=== PATIENT | male | born 1945 | race Asian ===

== ENCOUNTER 2020-07-01 10:41 | Inpatient (IN) | payer SELFPAY ==
--- NOTE | 2020-07-01 17:19 | PDOC.HHP ---
Hospitalist HPI - History of Present Illness referred from urgent are due to abnormal blood work History of Present Illness: PCP: City call The patient is 75-year-old male was admitted to [facility] by Dr. Nicholson on June 27, 2020. He was admitted for generalized weakness. He is visiting from [place] currently and is unable to get a flight back until August 24, 2020. Patient is Mandarin speaking only and has been living with his daughter and son-in-law. He did not have any medical conditions in his past other than depression. He went to the local urgent care and was referred to the closest hospital emergency room after it was discovered that he had hypercalcemia, anemia and renal failure. At the emergency room he was found to have acute kidney failure. He also had hypercalcemia and a chest x-ray showed multiple lytic lesions and pathological fracture left humerus. Patient has never had a diagnosis of multiple myeloma in the past however it is suspected now. Patient has initially been treated with empiric antibiotic therapy and was given a blood transfusion. At one point he was suspected to be in fluid overload so they discontinued IV fluids and started giving Lasix. An echo was obtained which showed diastolic dysfunction with an elevated BNP. Nephrology was consulted. Patient's condition was not improving while hospitalized. Oncology/hematology services were consulted and they recommended steroid therapy. Patient was transferred over to [facility] from [facility] for higher level of care and for oncology services. Patient is positive for overall weakness and weight loss over the past few weeks. About 3 to 4 months ago he broke his humerus on his left arm but not require any surgical intervention. ED Course: Transferred from [facility] as higher level of care. Hospitalist ROS - Review of Systems Constitutional: denies: fever, chills, sweats, weakness, malaise, other Eyes: denies: pain, vision change, conjunctivae inflammation, eyelid inflammation, redness, other ENT: denies: ear pain, ear discharge, nose pain, nose discharge, nose congestion , mouth pain, mouth swelling, throat pain, throat swelling, other Respiratory: denies: cough, dry, shortness of breath, hemoptysis, SOB with excertion, pleuritic pain, sputum, wheezing, other Cardiovascular: denies: chest pain, palpitations, orthopnea, paroxysmal noc. dyspnea, edema, light headedness, other Gastrointestinal: denies: nausea, vomiting, abdominal pain, diarrhea, constipation, melena, hematochezia, other Genitourinary: denies: dysuria, frequency, incontinence, hematuria, retention, other Musculoskeletal: denies: neck pain, shoulder pain, arm pain, back pain, hand pain, leg pain, foot pain, other Skin: denies: rash, lesions, vishnu, bruising, other All other systems reviewed; all pertinent +/- noted in HPI/Subj - Medication Medications: Allergies: NKDA Current Medications: 1 g every 12 hours Dexamethasone 4 mg IV daily Levaquin 500 mg every other day Vancomycin as per renal adjusted dose by pharmacy Protonix 40 mg IV twice daily Amlodipine 5 mg daily Vitamin B12 1000 mcg p.o. daily Folic acid 1 mg p.o. daily DuoNeb every 6 hours Remeron 15 mg p.o. at bedtime Sodium bicarbonate 325 mg p.o. 3 times daily Hospitalist History - Past Medical History Source: family, old records Psych: reports: Depression - Past Surgical History Past Surgical History: reports: no pertinent history - Social History Smoking Status: Never smoker Alcohol: reports: None Drugs: reports: none Living Situation: With Family, Other (Patient from [place] but he is visiting the [facility] since last August) Activity level: independent ambulation - Exam General Appearance: NAD, awake alert, ill appearing Eye: PERRL, anicteric sclera ENT: normocephalic atraumatic, dry oral mucosa Neck: symmetric, no lymphadenopathy Heart: RRR (Tachycardic), no murmur, normal peripheral pulses Respiratory: CTAB (Decreased in bases), normal chest expansion Gastrointestinal: soft, non-tender, non-distended, normal bowel sounds Extremities: no cyanosis, no clubbing, no edema Neurological: cranial nerve grossly intact, no focal deficits Psychiatric: flat affect Hospitalist Results - Labs Result Diagrams: 07/07/20 05:06 07/07/20 05:06 Lab results: Laboratory Tests 07/01/20 07/01/20 07/01/20 09:13 09:13 09:13 WBC 4.5 Hgb 9.2 L Hct 28.3 L Sodium 138 Potassium 3.1 L BUN 53 H Creatinine 3.53 H Estimated GFR (MDRD) 17 Glucose 151 H Calcium 9.2 Random Vancomycin 33.8 Hospitalist H&P A/P - Problem (1) HTN (hypertension) Code(s): I10 - ESSENTIAL (PRIMARY) HYPERTENSION Status: Acute (2) Cachexia Code(s): R64 - CACHEXIA Status: Acute (3) ARF (acute renal failure) Status: Acute Qualifiers: Acute renal failure type: with other specified pathological lesion Qualified Code(s): N17.8 - Other acute kidney failure (4) Generalized weakness Code(s): R53.1 - WEAKNESS Status: Acute (5) Hypercalcemia of malignancy Code(s): E83.52 - HYPERCALCEMIA Status: Acute (6) Depression Code(s): F32.9 - MAJOR DEPRESSIVE DISORDER, SINGLE EPISODE, UNSPECIFIED Status : Chronic Qualifiers: Depression Type: major depressive disorder Major depression recurrence: recurrent Psychotic features: without psychotic features (7) Macrocytic anemia Code(s): D53.9 - NUTRITIONAL ANEMIA, UNSPECIFIED Status: Chronic (8) Pathological fracture Code(s): M84.40XA - PATHOLOGICAL FRACTURE, UNSP SITE, INIT ENCNTR FOR FRACTURE Status: Chronic Qualifiers: Pathology associated with fracture: neoplastic disease Site of pathological fracture: unspecified site - Plan Plan: Hypertension BP controlled, vital signs are currently stable Continue scheduled medications with as needed antihypertensives Acute renal failure Reconsult nephrology, they were following him at the previous hospital Generalized weakness Continue empiric antibiotics Hypercalcemia of malignancy Suspicious of multiple myeloma Oncologic consulted Planning to return to [place] in August Depression Restart home medications Macrocytic anemia May be related to multiple myeloma Continue to monitor lab results GI prophylaxis with Protonix, VTE prophylaxis with SCDs CODE STATUS: Full Surrogate decision maker son-in-law Devante
[2020-07-01 17:21] VITALS: BMI 17.8
[2020-07-01] MEDS ORDERED: Electrolyte Replacement Protoc 1 EACH EACH FS SCH (18:30)
[2020-07-01] MEDS ORDERED: Magnesium 2 GM/50 ML 2 GM in Premix Bag 1 BAG IVPB SCH (18:30)
[2020-07-01] MEDS ORDERED: Potassium Chloride 20 MEQ TAB PO SCH (18:30)
[2020-07-01] MEDS ORDERED: Cefepime 1 GM in Sodium Chloride 0.9% 100 ML IVPB SCH (21:00)
[2020-07-01] MEDS: Mirtazapine 15 MG TAB PO SCH (21:41)
[2020-07-01] MEDS: Sodium Bicarbonate Tab 325 MG TAB PO SCH (21:41)
[2020-07-01] MEDS: Pantoprazole 40 MG VIAL IVP SCH (21:44)
[2020-07-01] MEDS: Piperacillin/Tazobactam 2.25 GM in Sodium Chloride 0.9% 100 ML IVPB SCH (21:51)
[2020-07-01] MEDS: traMADol HCl 50 MG TAB PO PRN (22:23)
[2020-07-02] MEDS ORDERED: ALPRAZolam 0.25 MG TAB PO SCH (00:30)
[2020-07-02 04:00] LABS: #Lymphocytes 0.3 thou/uL (1.20-3.40); #Monocytes 0.1 thou/uL (0.11-0.59); #Neutrophils 5.2 thou/uL (1.40-6.50); %Basophils 0.1 % (0.0-1.0); %Eosinophils 0.2 % (0.0-10.0); %Lymphocytes 5.1 % (21.0-51.0); %Monocytes 1.7 % (0.0-10.0); %Neutrophils 92.9 % (42.0-75.0); Hemoglobin 9.6 g/dL (14.0-18.0); Mean Corpuscular HGB CONC 33.1 g/dL (32.0-36.0); Mean Corpuscular Hemoglobin 33.2 pg (27.0-31.0); Mean Platelet Volume 7.8 fL (7.4-10.4); Platelet Count 139 thou/uL (130-400); RBC Distribution Width 14.8 % (11.5-14.5); Red Blood Cell (RBC) Count 2.88 mill/uL (4.70-6.10); White Blood Cell (WBC) Count 5.5 thou/uL (4.8-10.8)
[2020-07-02 04:23] LABS: Anion Gap 12 mmol/L (10-20); BUN (Urea Nitrogen) 59 mg/dL (8.4-25.7); Calc. Creatinine Clearance 16 mL/min (70-130); Calcium 8.8 mg/dL (7.8-10.44); Carbon Dioxide 22 mmol/L (23-31); Chloride 107 mmol/L (98-107); Estimated GFR-MDRD 20; Glucose 140 mg/dL (83-110); Potassium 3.5 mmol/L (3.5-5.1); Sodium 137 mmol/L (136-145)
[2020-07-02] MEDS: Piperacillin/Tazobactam 2.25 GM in Sodium Chloride 0.9% 100 ML IVPB SCH ×3 (06:06→22:29)
[2020-07-02] MEDS: Cyanocobalamin (Vitamin B-12) 1,000 MCG TAB PO SCH (08:41)
[2020-07-02] MEDS: Folic Acid 1 MG TAB PO SCH (08:41)
[2020-07-02] MEDS: Dexamethasone 40 MG in Sodium Chloride 0.9% 50 ML IVPB SCH (08:41)
[2020-07-02] MEDS: Sodium Bicarbonate Tab 325 MG TAB PO SCH ×3 (08:41→21:11)
[2020-07-02] MEDS: Amlodipine 5 MG TAB PO SCH (08:41)
[2020-07-02] MEDS: Pantoprazole 40 MG VIAL IVP SCH ×2 (08:42→21:11)
--- NOTE | 2020-07-02 09:22 | PDOC.HOSPP ---
- Subjective Encounter Date: 07/02/20 Encounter Time: : Subjective: 75M transferred here from [facility] for oncology services found to have multiple myloma after initially presenting for weakness and ARF on 06/27. Pt reports he overall feels well, but is very weak. Denies chest pain, SOB, abdominal pain. Endorses L arm pain when bearing weight, but no pain at rest. Chart and medications reviewed. Patient seen with the use of a [employer] video branch operations specialist. Family at bedside. - Objective Vital Signs & Weight: Vital Signs (12 hours) Temp Pulse Resp BP Pulse Ox 07/02/20 08:41 89 07/02/20 08:00 97.7 F 92 18 114/57 L 95 07/02/20 07:36 96 07/02/20 07:33 89 16 96 07/01/20 23:39 97.7 F 105 H 20 140/72 96 Weight Weight 120 lb 9 oz I&O: 07/01/20 07/02/20 07/03/20 06:59 06:59 06:59 Intake Total 960 Output Total 1000 Balance -40 Result Diagrams: 07/02/20 03:26 07/02/20 03:26 Hospitalist ROS - Review of Systems Constitutional: reports: weakness. denies: fever, chills Eyes: denies: vision change ENT: denies: nose congestion, throat pain Respiratory: denies: cough, dry, shortness of breath, hemoptysis, SOB with excertion, pleuritic pain, sputum, wheezing, other Cardiovascular: denies: chest pain, palpitations, orthopnea, paroxysmal noc. dyspnea, edema, light headedness, other Gastrointestinal: denies: nausea, vomiting, abdominal pain, diarrhea, constipation, melena, hematochezia, other Genitourinary: denies: dysuria Musculoskeletal: reports: arm pain Skin: denies: rash, lesions Neurological: denies: weakness, numbness, seizures - Medication Medications: Active Medications Generic Name Dose Route Start Last Admin Trade Name Freq PRN Reason Stop Dose Admin Albuterol/Ipratropium 3 ml 07/01/20 19:00 07/02/20 07:33 Duoneb NEB 3 ml [id number] TESSA Administration Amlodipine Besylate 5 mg 07/02/20 09:00 07/02/20 08:41 Norvasc PO 5 mg DAILY TESSA Administration Cyanocobalamin 1,000 mcg 07/02/20 09:00 07/02/20 08:41 Vitamin B-12 PO 1,000 mcg DAILY TESSA Administration Folic Acid 1 mg 07/02/20 09:00 07/02/20 08:41 Folvite PO 1 mg DAILY TESSA Administration Levofloxacin 500 mg/ Device 100 mls @ 100 mls/hr 07/01/20 23:00 07/01/20 22: 24 IVPB 100 mls Q2D TESSA Administration Dexamethasone 40 mg/ Sodium 60 mls @ 100 mls/hr 07/02/20 09:00 07/02/20 08:41 Chloride IVPB 60 mls DAILY TESSA Administration Piperacillin Sod/Tazobactam 100 mls @ 200 mls/hr 07/01/20 22:00 07/02/20 06: 06 Sod 2.25 gm/ Sodium Chloride IVPB 100 mls Q8HR TESSA Administration Mirtazapine 15 mg 07/01/20 21:00 07/01/20 21:41 Remeron PO 15 mg HS TESSA Administration Pantoprazole Sodium 40 mg 07/01/20 21:00 07/02/20 08:42 Protonix IVP 40 mg Q12HR TESSA Administration Sodium Bicarbonate 325 mg 07/01/20 21:00 07/02/20 08:41 Bicarbonate, Sodium PO 325 mg TID TESSA Administration Tramadol HCl 50 mg 07/01/20 21:55 07/01/20 22:23 Ultram PO 50 mg Q6H PRN Administration Severe Pain (7-10) - Exam General Appearance: NAD, awake alert, ill appearing Eye: PERRL, anicteric sclera ENT: normocephalic atraumatic, moist mucosa Neck: supple, symmetric, no JVD Heart: RRR, no murmur, no gallops, no rubs, normal peripheral pulses Respiratory: CTAB, no wheezes, no rales, no ronchi, normal chest expansion, no tachypnea, normal percussion Gastrointestinal: soft, non-tender, non-distended, normal bowel sounds, no palpable masses, no hepatomegaly, no splenomegaly, no bruit Extremities: no cyanosis, no clubbing, no edema Skin: normal turgor, no lesions, no rashes Neurological: no weakness, no focal deficits Musculoskeletal: generalized weakness, diffuse muscle atrophy Psychiatric: normal affect, A&O x 3 Hosp A/P (1) Cachexia Code(s): R64 - CACHEXIA Status: Acute (2) HTN (hypertension) Code(s): I10 - ESSENTIAL (PRIMARY) HYPERTENSION Status: Acute (3) ARF (acute renal failure) Status: Acute Qualifiers: Acute renal failure type: with other specified pathological lesion Qualified Code(s): N17.8 - Other acute kidney failure (4) Generalized weakness Code(s): R53.1 - WEAKNESS Status: Acute (5) Hypercalcemia of malignancy Code(s): E83.52 - HYPERCALCEMIA Status: Acute (6) Right lower lobe pneumonia Code(s): J18.9 - PNEUMONIA, UNSPECIFIED ORGANISM Status: Acute (7) Type 2 myocardial infarction Code(s): I21.A1 - MYOCARDIAL INFARCTION TYPE 2 Status: Acute (8) Depression Code(s): F32.9 - MAJOR DEPRESSIVE DISORDER, SINGLE EPISODE, UNSPECIFIED Status : Chronic Qualifiers: Depression Type: major depressive disorder Major depression recurrence: recurrent Psychotic features: without psychotic features (9) Pathological fracture Code(s): M84.40XA - PATHOLOGICAL FRACTURE, UNSP SITE, INIT ENCNTR FOR FRACTURE Status: Chronic Qualifiers: Pathology associated with fracture: neoplastic disease Site of pathological fracture: unspecified site (10) Multiple myeloma Code(s): C90.00 - MULTIPLE MYELOMA NOT HAVING ACHIEVED REMISSION Status: Suspected Qualifiers: Multiple myeloma remission status: not in remission Qualified Code(s): C90.00 - Multiple myeloma not having achieved remission - Plan Multiple Myeloma Pt presented to [facility] on 06/27 for generalized weakness. Was found to by hypercalcemic and in acute renal failure. Initial CXR showed lytic lesions and pathologic fracture of humerus suspicious for MM. SPEP positive with M-spike, immunofixation positive for igG kappa light chain. UPEP positive for Bence Velez proteins. Smear showed rouloux bodies. TSH, PTH wnl. Pt started on Dexamethasone 40 mg IV at [facility] which was continued on admission here. Oncology consulted. Plan: -Oncology consulted -Continue Dexamethasone 40 mg IV daily -Check Ca, Phos, LDH, Uric acid -Trend CMP Hypercalcemia of Malignancy: P/w hypercalcemia to 13.6. Lytic lesions on CXR consistent with multiple myeloma. Ca now down to 8.8 s/p aggressive IVF. Plan: -Trend Ca -IVF if needed Acute Renal Failure: P/w ARF Cr of 3.38, spiking to 3.78. Likely 2/[address] Molina of nephrology consulted at [facility]. Recommended IVF, no indication for dialysis at this time. Cr mildly improving to 3.08. K 3.5, bicarb 22. Plan: -Nephrology following, reccs appreciated -Trend kidney function -Continue bicarb 325 mg PO TID Macrocytic Anemia: Hg on admission 6.0. Now s/p transfusion with Hg improved to 9.6. Likely 2/2 MM. Plan: -Trend H/H -Transfuse if needed Elevation in Troponin Level: Elevated troponin on admission to 0.097, downtrending to 0.01. EKG showed NSR with no ischemic changes. No chest pain. Likely elevated 2/2 ARF. Plan: -Continue to monitor for cardiac symptoms RLL Pneumonia: CXR done in the ER on admission showed basilar airspace opacities with a significant opacity in the RLL. COVID PCR negative. Started on empiric abx, vanc , zosyn, and levaquin. Pt's respiratory status stable. Saturating well on RA. Plan: -Deescalate abx -Continue empiric CAP, psuedomonal, and aspiration coverage with cefepime/zosyn -Continue to monitor respiratory status Pathologic Humerus Fracture: CXR showed L humerus pathologic fracture. Unable to bear weight. Neurovascularly intact. Plan: -Sling -Orthopedics consult DVT prophylaxis: SQ Heparin Case discussed with attending physician, Dr. Katz.
[2020-07-02 09:31] LABS: Vancomycin, Random 22.6 ug/mL (See Comment)
[2020-07-02 09:33] LABS: Calcium 8.5 mg/dL (7.8-10.44); Magnesium 2.4 mg/dL (1.6-2.6); Uric Acid 9.1 mg/dL (3.5-7.2)
[2020-07-02] MEDS ORDERED: Vancomycin 1 GM in Premix Bag 1 BAG IVPB SCH (10:00)
[2020-07-02 10:23] LABS: CKMB 1.9 ng/mL (0-6.6)
[2020-07-02] MEDS: Sodium Chloride 0.9% 1,000 ML IV SCH (17:25)
--- NOTE | 2020-07-02 17:30 | CON ---
DATE OF CONSULTATION: REASON FOR CONSULT: Multiple myeloma. HISTORY OF PRESENT ILLNESS: Mr. Bee is a 75-year-old gentleman from [place], who is visiting his family. He has been living with his daughter and son-in-law for the past 10 months and was planning to return to [place] in August of 2020. He has no medical conditions, but over the past several months has been having progressive weakness, pain, fatigue, and dizziness. He went to the Urgent Care last week for weakness and had labs drawn which showed hypercalcemia, anemia, and renal failure. He was then admitted to the [facility]. His creatinine was 3.3, calcium was 13.2, hemoglobin was 8.1. He was given calcitonin and a dose of Zometa with improvement of his calcium level. He was given IV hydration. SPEP was performed which showed an IgG monoclonal protein with kappa light chain specificity. He is transferred to this facility for further treatment. He has been started on dexamethasone 40 mg, today was day 3 of 4. His pain has been controlled with tramadol. He was also diagnosed with pneumonia and has completed 6 to 7 days of antibiotics. His chest x-ray showed bilateral lobe mixed opacities. He had multifocal lytic lesions in the skeleton, pathological fracture of the left humerus. He was seen at bedside, using his son-in-law as diplomatic interpreter/translator. He denies any recent weight loss, states he has always been very thin. He was tearful for the new diagnosis, but otherwise denying any pain. PAST MEDICAL HISTORY: Depression. PAST SURGICAL HISTORY: None. ALLERGIES: NO KNOWN DRUG ALLERGIES. HOME MEDICATIONS: Mirtazapine 15 mg daily. FAMILY HISTORY: No known history of cancer. SOCIAL HISTORY: , lives in [place], visiting family since last August, daily cigarette. REVIEW OF SYSTEMS: Unable to obtain secondary to language barrier. PHYSICAL EXAMINATION: VITAL SIGNS: Temperature is 97.6, pulse is 90, respiratory rate 20, blood pressure is 153/73. He is 96% on 2 L. GENERAL: This is a thin male, in no acute distress. HEENT: Normocephalic, atraumatic. Pupils are equal and reactive to light. NECK: Supple. CV: Regular rate and rhythm. LUNGS: Clear. ABDOMEN: Soft and nontender. Bowel sounds are positive. EXTREMITIES: No clubbing or cyanosis. SKIN: No rash. NEUROLOGIC: Nonfocal. PERTINENT LABS AND X-RAYS: Current WBCs are 5.5, hemoglobin 9.6, hematocrit 28.9, platelet count is 139,000. He has 92% neutrophils and 5% lymphocytes. Sodium 137, potassium 3.5, chloride 107, CO2 is 22, BUN is 59, creatinine 3.08, uric acid 9.1, calcium 8.5, phosphorus 2, magnesium 2.4. Iron studies are normal. Bilirubin is 0.5, AST is 26, ALT is 11, alkaline phosphatase is 72, LDH is 258. Troponin is 0.092. Serum total protein is 9, albumin 2.4, globulin 6.6, M spike is 3.7. B12 is 385, folate is 7. Urine showed 3+ bacteria. His IgG is 4665, IgA is 53, IgM is 18. COVID negative. Radiology per HPI. ASSESSMENT: 1. Newly diagnosed IgG Repton multiple myeloma. 2. Pneumonia. 3. Pathological fracture of the left humerus. 4. Acute kidney injury, likely due to myeloma. DISCUSSION: The patient has been started on 40 mg of dexamethasone. He has received 3/4 days. His pain is completely controlled with tramadol. He is able to get up and walk around in the room with minimal assistance. Patient is a [place] citizen with intention to return to [place] in August. He has not had a bone marrow biopsy nor skeletal survery. Although, he clearly has lytic lesions on chest xray. Patient is self pay and these tests will be deferred. With patient's current frail state, he will need treatment in order to return to [place]. Discussed with family that Velcade and Revlimid would be choice of treatment. However, Revlimid is cost prohibitive. He would need Velcade injections over the next several weeks to improve his function. He also need monitoring of his calcium and likely need a repeat dose of Zometa. I have asked telephonic case manager to research any financial assistance for the patient. Case has been discussed in detail with Dr. Slaughter. We will continue treatment for his pneumonia and monitoring of his kidney function. Thank you for the consult. We will follow his hospital course closely. Job ID: [id number] [facility]
--- NOTE | 2020-07-02 17:55 | RAD ---
Exam:2 views left humerus HISTORY: Pathologic fracture COMPARISON: None FINDINGS: Extensive lucent foci suggesting lytic lesions throughout the visualized left humerus, left scapula, and left clavicle. Additional lucent/lytic foci are noted in the left ribs. There is a pathologic fracture involving the mid left humeral diaphysis. There is cortical destruction and destr uction. IMPRESSION: Pathologic fracture left humerus. Additional multiple lytic lesions are noted in the visu alized osseous structures.
[2020-07-02] MEDS: Mirtazapine 15 MG TAB PO SCH (21:11)
[2020-07-02 21:32] LABS: Vancomycin, Random 18.6 ug/mL (See Comment)
[2020-07-02] MEDS ORDERED: Vancomycin HCl 500 MG in Sodium Chloride 0.9% 100 ML IVPB SCH (22:45)
[2020-07-03] MEDS ORDERED: Vancomycin HCl 500 MG in Sodium Chloride 0.9% 100 ML IVPB SCH (00:45)
[2020-07-03] MEDS: Piperacillin/Tazobactam 2.25 GM in Sodium Chloride 0.9% 100 ML IVPB SCH ×3 (05:06→21:14)
[2020-07-03] MEDS: Sodium Chloride 0.9% 1,000 ML IV SCH ×2 (05:08→20:44)
--- NOTE | 2020-07-03 06:56 | CON ---
DATE OF CONSULTATION: 07/02/2020 CONSULTING PHYSICIAN: Mira Mann NP REASON FOR CONSULTATION: Acute kidney injury. REASON FOR ADMISSION: Abnormal blood work. HISTORY OF PRESENT ILLNESS: This is a 75-year-old Somali male, who is visiting his family, Mandarin speaking only, came to the hospital with not feeling well and abnormal labs. The patient was admitted to the [facility] and was having multiple myeloma workup based on his anemia, hypercalcemia, pathological fractures and bone lesions, and hypercalcemia. The patient was also oncology and due to the lack of specialist care in the hospital, the patient was transferred over here. The patient's creatinine is actually better. Making better amount of urine, but is still weak. He did better with transferring today. No nausea, vomiting, chest pain per the family member available. PAST MEDICAL HISTORY: Positive for depression. PAST SURGICAL HISTORY: None. HOME MEDICATIONS: Reviewed. ALLERGIES: NO KNOWN DRUG ALLERGIES. SOCIAL HISTORY: No smoking, alcohol, or illicit drug use. FAMILY HISTORY: No history of any kidney disease. REVIEW OF SYSTEMS: Could not be obtained as the patient is very lethargic. PHYSICAL EXAMINATION: GENERAL: This is a thin built, Somali male and very lethargic. VITAL SIGNS: Temperature 97.6, pulse 105, respiratory rate 20, blood pressure 153/76. HEENT: Atraumatic, normocephalic. NECK: Supple. CV: S1 and S2 heard. Regular rate and rhythm. RESPIRATORY: Clear. GASTROINTESTINAL: Abdomen is soft. MUSCULOSKELETAL: No edema. DERMATOLOGIC: No skin rash. NEUROLOGIC: Lethargic. LABORATORY DATA: Sodium 137, BUN is 59, creatinine is 3.08, and GFR of 20. Hemoglobin is 9.6. ASSESSMENT AND PLAN: 1. Acute kidney injury on chronic kidney disease, stage 4, most likely from myeloma. The patient seems to be making better amount of urine. Labs are better. Continue with supportive care. Avoid nephrotoxins. Continue hydration if tolerated. 2. Hypercalcemia, better. 3. Anema . 4. Multiple myeloma. Workups are pending. 5. Edema, controlled. 6. History of hypertension. Continue hydration. Avoid nephrotoxins. Follow with Oncology for further plans for myeloma care. Thank you for the consult. We will follow. Job ID: [id number]
[2020-07-03 07:16] LABS: #Lymphocytes 0.2 thou/uL (1.20-3.40); #Monocytes 0.1 thou/uL (0.11-0.59); %Eosinophils 0.5 % (0.0-10.0); %Monocytes 2.2 % (0.0-10.0); %Neutrophils 92.3 % (42.0-75.0); Hemoglobin 9.2 g/dL (14.0-18.0); Mean Corpuscular HGB CONC 32.8 g/dL (32.0-36.0); Mean Corpuscular Hemoglobin 33.4 pg (27.0-31.0); Mean Platelet Volume 7.5 fL (7.4-10.4); Platelet Count 141 thou/uL (130-400); RBC Distribution Width 14.9 % (11.5-14.5); Red Blood Cell (RBC) Count 2.74 mill/uL (4.70-6.10); White Blood Cell (WBC) Count 4.3 thou/uL (4.8-10.8)
[2020-07-03 07:42] LABS: Anion Gap 13 mmol/L (10-20); BUN (Urea Nitrogen) 69 mg/dL (8.4-25.7); Calc. Creatinine Clearance 16 mL/min (70-130); Calcium 7.7 mg/dL (7.8-10.44); Carbon Dioxide 19 mmol/L (23-31); Chloride 112 mmol/L (98-107); Estimated GFR-MDRD 20; Glucose 150 mg/dL (83-110); Potassium 3.4 mmol/L (3.5-5.1); Sodium 141 mmol/L (136-145)
[2020-07-03] MEDS ORDERED: Prevnar 13-Val Conj/PF 0.5 ML SYRINGE IM ONE (09:00)
[2020-07-03] MEDS: Folic Acid 1 MG TAB PO SCH (09:29)
[2020-07-03] MEDS: Pantoprazole 40 MG VIAL IVP SCH ×2 (09:29→20:42)
[2020-07-03] MEDS: Amlodipine 5 MG TAB PO SCH (09:29)
[2020-07-03] MEDS: Sodium Bicarbonate Tab 325 MG TAB PO SCH ×3 (09:29→20:42)
[2020-07-03] MEDS: Cyanocobalamin (Vitamin B-12) 1,000 MCG TAB PO SCH (09:29)
[2020-07-03] MEDS: Dexamethasone 40 MG in Sodium Chloride 0.9% 50 ML IVPB SCH (09:35)
--- NOTE | 2020-07-03 10:08 | PDOC.MOPN ---
Interval History: pain controlled, family at bedside. - Vital Signs Vital Signs: Vital Signs (12 hours) Temp Pulse Resp BP Pulse Ox 07/03/20 09:29 96 07/03/20 08:00 97.4 F L 96 16 126/65 96 07/03/20 07:04 96 07/03/20 07:01 87 20 96 07/02/20 23:32 96 Weight Admit Weight 120 lb 8.96 oz Weight 120 lb 9 oz - Physical Exam General: Alert HEENT: Atraumatic Lungs: Clear to auscultation Cardiovascular: Regular rate Abdomen: Normal bowel sounds Neurological: Normal speech - Labs Result Diagrams: 07/03/20 06:57 07/03/20 06:57 Lab results: Laboratory Results - last 24 hr 07/03/20 06:57: WBC 4.3 L, RBC 2.74 L, Hgb 9.2 L, Hct 27.9 L, MCV 102.0 H, MCH 33.4 H, MCHC 32.8, RDW 14.9 H, Plt Count 141, MPV 7.5, Neutrophils % 92.3 H, Lymphocytes % 5.0 L, Monocytes % 2.2, Eosinophils % 0.5, Basophils % 0.0, Neutrophils # 4.0, Lymphocytes # 0.2 L, Monocytes # 0.1 L, Eosinophils # 0.0, Basophils # 0.0 07/03/20 06:57: Sodium 141, Potassium 3.4 L, Chloride 112 H, Carbon Dioxide 19 L , Anion Gap 13, BUN 69 H, Creatinine 3.05 H, Estimated GFR (MDRD) 20, Glucose 150 H, Calcium 7.7 L 07/02/20 21:01: Random Vancomycin 18.6 07/02/20 09:02: CK-MB (CK-2) 1.9 Status: lab reviewed by me A/P - Problem (1) Hypercalcemia of malignancy Current Visit: No Code(s): E83.52 - HYPERCALCEMIA Status: Acute (2) Right lower lobe pneumonia Current Visit: No Code(s): J18.9 - PNEUMONIA, UNSPECIFIED ORGANISM Status: Acute (3) Multiple myeloma Current Visit: No Code(s): C90.00 - MULTIPLE MYELOMA NOT HAVING ACHIEVED REMISSION Status: Suspected Qualifiers: Multiple myeloma remission status: not in remission Qualified Code(s): C90.00 - Multiple myeloma not having achieved remission - Plan Plan: 1. plan weekly velcade, cytoxan, dex 2. for financial assistance
[2020-07-03] MEDS ORDERED: Potassium Chloride 20 MEQ in Premix Bag 1 BAG IVPB SCH (11:15)
[2020-07-03] MEDS: Bisacodyl 10 MG SUPP PR SCH ×3 (12:19→20:50)
--- NOTE | 2020-07-03 13:28 | PRG ---
DATE OF SERVICE: 07/03/2020 SUBJECTIVE: Patient was seen and examined at bedside and overnight events noted. Patient denies any shortness of breath or chest pain or palpitation. No history of nausea or vomiting or diarrhea or fever or chills or cramps. OBJECTIVE: General: This is a thin-built Polish male, in no apparent distress. Vital Signs: Temperature . Heart rate 96. Respiratory rate 16. Blood pressure 126/65. HEENT: Atraumatic, normocephalic. Oral mucosa is moist. Neck: Supple. Cardiovascular: S1, S2 heard. Rate and rhythm regular. Respiratory: Clear to auscultation. Gastrointestinal: Abdomen is soft. Musculoskeletal: No tenderness. No edema. Dermatologic: No skin rash. Neurologic: Alert and awake and oriented x3. No focal neurologic deficits. Moving all the extremities. Psychiatric: Mood and affect normal. LABORATORY DATA: Potassium 3.4, BUN is 69, creatinine is 3.05. ASSESSMENT AND PLAN: 1. Acute kidney injury on chronic kidney disease, stage 4. Renal function seems to be stable most likely from multiple myeloma. Agree with Oncology evaluation and planning to start on chemotherapy. He should benefit from kidney renal disease too. We will continue to closely monitor renal function with hydration as tolerated. 2. Hypokalemia, replace. 3. Acidosis. 4. Anemia secondary to myeloma. 5. Multiple myeloma. Follow up with Oncology for further plans. 6. Edema, controlled. 7. We will watch renal function while he could have chemotherapy and avoid nephrotoxic. Job ID: [id number]
--- NOTE | 2020-07-03 15:23 | PDOC.HOSPP ---
- Subjective Encounter Date: 07/03/20 Encounter Time: 08:00 Subjective: no overnight events .this morning, more alert, per relative at bedside, did well overnight. - Objective Vital Signs & Weight: Vital Signs (12 hours) Temp Pulse Resp BP Pulse Ox 07/03/20 13:31 94 16 95 07/03/20 09:29 96 07/03/20 08:00 97.4 F L 96 16 126/65 96 07/03/20 07:04 96 07/03/20 07:01 87 20 96 Weight Admit Weight 120 lb 8.96 oz Weight 120 lb 9 oz I&O: 07/02/20 07/03/20 07/04/20 06:59 06:59 06:59 Intake Total 960 1550 Output Total 1000 1350 Balance -40 200 Result Diagrams: 07/03/20 06:57 07/03/20 06:57 Hospitalist ROS - Review of Systems Constitutional: denies: chills, sweats Respiratory: denies: cough, shortness of breath, pleuritic pain, sputum Cardiovascular: denies: chest pain, palpitations, orthopnea, paroxysmal noc. dyspnea Gastrointestinal: reports: constipation. denies: nausea, vomiting, abdominal pain, diarrhea Genitourinary: denies: dysuria, hematuria - Medication Medications: Active Medications Generic Name Dose Route Start Last Admin Trade Name Freq PRN Reason Stop Dose Admin Albuterol/Ipratropium 3 ml 07/01/20 19:00 07/03/20 13:31 Duoneb NEB 3 ml [id number] TESSA Administration Amlodipine Besylate 5 mg 07/02/20 09:00 07/03/20 09:29 Norvasc PO 5 mg DAILY TESSA Administration Bisacodyl 10 mg 07/03/20 13:00 07/03/20 12:19 Dulcolax [place] 10 mg Q8H TESSA Administration Cyanocobalamin 1,000 mcg 07/02/20 09:00 07/03/20 09:29 Vitamin B-12 PO 1,000 mcg DAILY TESSA Administration Folic Acid 1 mg 07/02/20 09:00 07/03/20 09:29 Folvite PO 1 mg DAILY TESSA Administration Dexamethasone 40 mg/ Sodium 60 mls @ 100 mls/hr 07/02/20 09:00 07/03/20 09:35 Chloride IVPB 60 mls DAILY TESSA Administration Piperacillin Sod/Tazobactam 100 mls @ 200 mls/hr 07/01/20 22:00 07/03/20 14: 49 Sod 2.25 gm/ Sodium Chloride IVPB 100 mls Q8HR TESSA Administration Sodium Chloride 1,000 mls @ 70 mls/hr 07/02/20 16:45 07/03/20 05:08 Normal Saline 0.9% IV 1,000 mls .[id number] TESSA Administration Mirtazapine 15 mg 07/01/20 21:00 07/02/20 21:11 Remeron PO 15 mg HS TESSA Administration Pantoprazole Sodium 40 mg 07/01/20 21:00 07/03/20 09:29 Protonix IVP 40 mg Q12HR TESSA Administration Sodium Bicarbonate 325 mg 07/01/20 21:00 07/03/20 14:50 Bicarbonate, Sodium PO 325 mg TID TESSA Administration Tramadol HCl 50 mg 07/01/20 21:55 07/01/20 22:23 Ultram PO 50 mg Q6H PRN Administration Severe Pain (7-10) - Exam General Appearance: NAD, awake alert Neck: no JVD Heart: no murmur, no gallops, no rubs Heart - other findings: mild tachycardia Respiratory: no wheezes, no rales, no ronchi Respiratory - other findings: reduced right lower field breath sounds Gastrointestinal: non-tender, normal bowel sounds, distended Extremities: no edema Psychiatric: normal affect, normal behavior, A&O x 3 Hosp A/P - Plan #CAP/Aspiration pneumonia clinically improving Resp culture - normal respiratory ryan and yeast stopped vanc, continue zosyn procalcitonin; if low, will stop ABx #constipation no BM in 5 days -docusate, bisacodyl started #TAM -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
[2020-07-03] MEDS: Mirtazapine 15 MG TAB PO SCH (20:42)
[2020-07-03] MEDS: Docusate 100 MG CAP PO SCH (20:42)
[2020-07-04] MEDS: Bisacodyl 10 MG SUPP PR SCH ×4 (05:54→19:57)
[2020-07-04] MEDS: Piperacillin/Tazobactam 2.25 GM in Sodium Chloride 0.9% 100 ML IVPB SCH ×3 (05:56→21:57)
[2020-07-04 07:02] LABS: #Lymphocytes 0.2 thou/uL (1.20-3.40); #Monocytes 0.1 thou/uL (0.11-0.59); #Neutrophils 3.6 thou/uL (1.40-6.50); %Eosinophils 0.4 % (0.0-10.0); %Lymphocytes 4.8 % (21.0-51.0); %Monocytes 2.8 % (0.0-10.0); %Neutrophils 92.1 % (42.0-75.0); Hemoglobin 8.5 g/dL (14.0-18.0); Mean Corpuscular HGB CONC 30.8 g/dL (32.0-36.0); Mean Corpuscular Hemoglobin 32.6 pg (27.0-31.0); Mean Platelet Volume 7.6 fL (7.4-10.4); Platelet Count 151 thou/uL (130-400); RBC Distribution Width 15.3 % (11.5-14.5); White Blood Cell (WBC) Count 3.9 thou/uL (4.8-10.8)
[2020-07-04 07:27] LABS: Anion Gap 14 mmol/L (10-20); BUN (Urea Nitrogen) 73 mg/dL (8.4-25.7); Calc. Creatinine Clearance 19 mL/min (70-130); Calcium 7.2 mg/dL (7.8-10.44); Carbon Dioxide 19 mmol/L (23-31); Chloride 114 mmol/L (98-107); Estimated GFR-MDRD 24; Glucose 143 mg/dL (83-110); Potassium 3.6 mmol/L (3.5-5.1); Sodium 143 mmol/L (136-145)
[2020-07-04] MEDS: Pantoprazole 40 MG VIAL IVP SCH ×2 (09:10→20:18)
[2020-07-04] MEDS: Cyanocobalamin (Vitamin B-12) 1,000 MCG TAB PO SCH (09:10)
[2020-07-04] MEDS: Dexamethasone 40 MG in Sodium Chloride 0.9% 50 ML IVPB SCH (09:10)
[2020-07-04] MEDS: Amlodipine 5 MG TAB PO SCH (09:10)
[2020-07-04] MEDS: Docusate 100 MG CAP PO SCH ×2 (09:11→20:18)
[2020-07-04] MEDS: Sodium Bicarbonate Tab 325 MG TAB PO SCH ×3 (09:11→20:16)
[2020-07-04] MEDS: ALPRAZolam 0.25 MG TAB PO PRN ×2 (09:11→20:18)
[2020-07-04] MEDS: Folic Acid 1 MG TAB PO SCH (09:11)
--- NOTE | 2020-07-04 10:46 | PDOC.MOPN ---
Interval History: sleeping better, continues to have anxiety. Family at bedside. - Vital Signs Vital Signs: Vital Signs (12 hours) Pulse Resp Pulse Ox 07/04/20 09:10 89 07/04/20 08:00 95 07/04/20 07:48 96 07/04/20 07:46 89 16 95 07/03/20 23:20 92 16 95 Weight Admit Weight 120 lb 8.96 oz Weight 120 lb 9 oz - Physical Exam General: No acute distress HEENT: Atraumatic, PERRLA, EOMI, Mucous membr. moist/pink Lungs: Clear to auscultation, Normal air movement Cardiovascular: Regular rate, Normal S1, Normal S2, No murmurs, Gallops, Rubs Abdomen: Normal bowel sounds, Soft, No tenderness, No hepatospenomegaly, No masses Neurological: Normal speech - Labs Result Diagrams: 07/04/20 06:09 07/04/20 06:09 Lab results: Laboratory Results - last 24 hr 07/04/20 06:09: Procalcitonin 1.54 07/04/20 06:09: WBC 3.9 L, RBC 2.60 L, Hgb 8.5 L, Hct 27.5 L, MCV 106.0 H, MCH 32.6 H, MCHC 30.8 L, RDW 15.3 H, Plt Count 151, MPV 7.6, Neutrophils % 92.1 H, Lymphocytes % 4.8 L, Monocytes % 2.8, Eosinophils % 0.4, Basophils % 0.0, Neutrophils # 3.6, Lymphocytes # 0.2 L, Monocytes # 0.1 L, Eosinophils # 0.0, Basophils # 0.0 07/04/20 06:09: Sodium 143, Potassium 3.6, Chloride 114 H, Carbon Dioxide 19 L, Anion Gap 14, BUN 73 H, Creatinine 2.58 H, Estimated GFR (MDRD) 24, Glucose 143 H, Calcium 7.2 L Status: lab reviewed by me A/P - Problem (1) Hypercalcemia of malignancy Current Visit: No Code(s): E83.52 - HYPERCALCEMIA Status: Acute (2) Right lower lobe pneumonia Current Visit: No Code(s): J18.9 - PNEUMONIA, UNSPECIFIED ORGANISM Status: Acute (3) Multiple myeloma Current Visit: No Code(s): C90.00 - MULTIPLE MYELOMA NOT HAVING ACHIEVED REMISSION Status: Suspected Qualifiers: Multiple myeloma remission status: not in remission Qualified Code(s): C90.00 - Multiple myeloma not having achieved remission - Plan Plan: 1. Plan Cytoxan today 2. Attempting to get Velcade from mfr 3. DC Dexamethasone after dose today. 4. Hopefully, home tomorrow to return weekly for treatment.
[2020-07-04] MEDS ORDERED: Ondansetron ORAL SOLN. 4 MG/5 ML UDCUP PO PRN (11:06)
[2020-07-04] MEDS ORDERED: SODIUM CHLORIDE 0.9% IVPB SCH (11:15)
[2020-07-04] MEDS ORDERED: CYCLOPHOSPHAMIDE IVPB SCH (11:15)
[2020-07-04] MEDS ORDERED: Ondansetron HCl/PF 8 MG in Sodium Chloride 0.9% 50 ML IVPB SCH (11:15)
[2020-07-04] MEDS: Sodium Chloride 0.9% 1,000 ML IV SCH (11:58)
[2020-07-04] MEDS ORDERED: Sodium Chloride 0.9% 500 ML IVPB SCH (12:45)
--- NOTE | 2020-07-04 13:44 | CON ---
DATE OF CONSULTATION: 07/04/2020 REQUESTING PHYSICIAN: Alise Rodriguez. CONSULTING PHYSICIAN: Dr. Regulo Guevara. REASON FOR CONSULTATION: Left humeral midshaft subacute healing fracture with superimposed myeloma, bony erosion with impending fracture. BRIEF CLINICAL HISTORY: The patient is a 75-year-old, Mandarin speaking [place] national, who was brought to [facility] Emergency Room after he was noted to have significant weakness and bony lytic lesions. He is a visiting person from [place] where he resides. The patient's son, I believe, is a citizen and acts as an traveling missionary for this particular visit. He is present at the bedside. The patient has a diagnosis of myeloma, which is treatable, but I believe there is a fair amount of social issues standing in the way of treatment. Our service has been consulted for evaluation of the impending fracture of the left midshaft humerus. The patient does admit to some discomfort what he describes as a bruise, but without surgery he has healed this area once. Through his son as traveling missionary, he is explained to me that the patient currently is not desirous of any surgical intervention and would like to return home to [place] for full treatment of both the myeloma and the impending fracture. PHYSICAL EXAMINATION: He is neurovascularly intact in the left upper extremity. He is cachectic. He does not appear well. He has had abrupt weight loss. bony callus, but he has elbow flexion, extension, and full function of the left upper extremity. No deformities identified. IMAGING STUDIES: Two-view left humerus demonstrates a lytic lesion in the midshaft of the diaphysis. He also has what appears to be a healed oblique midshaft fracture with callus formation. IMPRESSION: 1. Multiple myeloma, new diagnosis. 2. Previous midshaft oblique humeral fracture which is healed. 3. Superimposed bony erosion of the humeral diaphysis with impending fracture. PLAN: 1. I had a long discussion with the patient's son regarding prophylactic treatment with intramedullary nail or elastic nails for fixation and stabilization and then the patient's son expressed to me that his father is non-desirous of surgery at this point. He seems to have function and he is comfortable enough. Therefore, we will respect his wishes and for now sign off. Re-consult as needed. 2. We will be available to the primary treating team for re-consult should the patient sustain a full fracture. I spoke with Vickie Cox, nurse practitioner at length regarding the patient's condition and prognosis and treatment options. Re-consult as needed. Job ID: [id number]
--- NOTE | 2020-07-04 14:45 | PDOC.HOSPP ---
- Subjective Encounter Date: 07/04/20 Encounter Time: 09:00 Subjective: no overnight events. per family member at bedside, had difficult breathing while sleeping. otehrwise no complaints. - Objective Vital Signs & Weight: Vital Signs (12 hours) Temp Pulse Resp BP Pulse Ox 07/04/20 13:30 94 16 96 07/04/20 09:10 89 07/04/20 08:00 97.5 F L 95 20 135/69 95 07/04/20 07:48 96 07/04/20 07:46 89 16 95 Weight Admit Weight 120 lb 8.96 oz Weight 120 lb 9 oz I&O: 07/03/20 07/04/20 07/05/20 06:59 06:59 06:59 Intake Total 1550 3220 Output Total 1350 750 Balance 200 2470 Result Diagrams: 07/04/20 06:09 07/04/20 06:09 Hospitalist ROS - Review of Systems Constitutional: denies: chills, sweats Respiratory: reports: cough, dry, shortness of breath. denies: sputum Cardiovascular: denies: chest pain, palpitations, orthopnea, paroxysmal noc. dyspnea Genitourinary: denies: hematuria Neurological: reports: weakness - Medication Medications: Active Medications Generic Name Dose Route Start Last Admin Trade Name Freq PRN Reason Stop Dose Admin Albuterol/Ipratropium 3 ml 07/01/20 19:00 07/04/20 13:30 Duoneb NEB 3 ml [id number] TESSA Administration Amlodipine Besylate 5 mg 07/02/20 09:00 07/04/20 09:10 Norvasc PO 5 mg DAILY TESSA Administration Bisacodyl 10 mg 07/03/20 13:00 07/04/20 13:57 Dulcolax [place] Not Given Q8H TESSA Cyanocobalamin 1,000 mcg 07/02/20 09:00 07/04/20 09:10 Vitamin B-12 PO 1,000 mcg DAILY TESSA Administration Docusate Sodium 100 mg 07/03/20 21:00 07/04/20 09:11 Colace PO 100 mg BID TESSA Administration Folic Acid 1 mg 07/02/20 09:00 07/04/20 09:11 Folvite PO 1 mg DAILY TESSA Administration Piperacillin Sod/Tazobactam 100 mls @ 200 mls/hr 07/01/20 22:00 07/04/20 14: 28 Sod 2.25 gm/ Sodium Chloride IVPB 100 mls Q8HR TESSA Administration Ondansetron HCl 8 mg/ Sodium 54 mls @ 200 mls/hr 07/04/20 11:15 07/04/20 13: 18 Chloride IVPB 54 mls WILLCALL TESSA Administration Sodium Chloride 500 mls @ 0 mls/hr 07/04/20 12:45 07/04/20 13:18 Normal Saline 0.9% IVPB 500 mls INF TESSA Administration KVO Mirtazapine 15 mg 07/01/20 21:00 07/03/20 20:42 Remeron PO 15 mg HS TESSA Administration Pantoprazole Sodium 40 mg 07/01/20 21:00 07/04/20 09:10 Protonix IVP 40 mg Q12HR TESSA Administration Sodium Bicarbonate 325 mg 07/01/20 21:00 07/04/20 14:29 Bicarbonate, Sodium PO 325 mg TID TESSA Administration Tramadol HCl 50 mg 07/01/20 21:55 07/01/20 22:23 Ultram PO 50 mg Q6H PRN Administration Severe Pain (7-10) - Exam General Appearance: NAD, awake alert Heart: no gallops Heart - other findings: regular rhythm, tachycardic Respiratory: CTAB, no wheezes, no rales, no ronchi Respiratory - other findings: reduced right lower field lung sounds Gastrointestinal: non-tender, normal bowel sounds, distended Extremities: no edema Psychiatric: normal affect, normal behavior, A&O x 3 Hosp A/P - Plan #CAP/Aspiration pneumonia clinically improving Resp culture - normal respiratory ryan and yeast procalcitonin remains elevated - continue zosyn #constipation no BM in 5 days; patient hasnt been receiving bisacodyl [place] -continue docusate, communicated to start bisacodyl [place] #TAM -improving -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
[2020-07-04] MEDS ORDERED: CYCLOPHOSPHAMIDE IVPB ONE (15:37)
[2020-07-04] MEDS ORDERED: SODIUM CHLORIDE 0.9% IVPB ONE (15:37)
--- NOTE | 2020-07-04 15:55 | PRG ---
DATE OF SERVICE: SUBJECTIVE: Patient was seen and examined at bedside and overnight events noted. Patient denies any shortness of breath or chest pain or palpitation. No history of nausea or vomiting or diarrhea or fever or chills or cramps. OBJECTIVE: General: This is a well-built male, in no apparent distress. Vital Signs: Temperature 97.5. Heart Rate 89. Respiratory rate 20. Blood pressure 135/69. HEENT: Atraumatic, normocephalic. Oral mucosa is moist. Neck: Supple. Cardiovascular: S1, S2 heard. Rate and rhythm regular. Respiratory: Clear to auscultation. Gastrointestinal: Abdomen is soft. Musculoskeletal: No tenderness. No edema. Dermatologic: No skin rash. Neurologic: Alert and awake and oriented x3. No focal neurologic deficits. Moving all the extremities. Psychiatric: Mood and affect normal. LABORATORY DATA: Potassium 3.6, BUN is 73, creatinine is 2.5. ASSESSMENT AND PLAN: 1. Acute kidney injury on chronic kidney disease stage 4, getting better. 2. Hyperkalemia. 3. Multiple myeloma. 4. Anemia. 5. Edema, controlled. 6. Continue hydration. Avoid nephrotoxins. We will follow. Appreciate help from Oncology. Job ID: [id number]
[2020-07-04] MEDS: traMADol HCl 50 MG TAB PO PRN (20:16)
[2020-07-04] MEDS: Mirtazapine 15 MG TAB PO SCH (20:17)
[2020-07-05] MEDS: Piperacillin/Tazobactam 2.25 GM in Sodium Chloride 0.9% 100 ML IVPB SCH ×3 (06:05→21:00)
[2020-07-05] MEDS: Bisacodyl 10 MG SUPP PR SCH ×3 (06:06→20:43)
[2020-07-05 06:30] LABS: #Lymphocytes 0.2 thou/uL (1.20-3.40); #Monocytes 0.1 thou/uL (0.11-0.59); #Neutrophils 2.7 thou/uL (1.40-6.50); %Basophils 0.7 % (0.0-1.0); %Eosinophils 0.2 % (0.0-10.0); %Monocytes 4.7 % (0.0-10.0); %Neutrophils 87.5 % (42.0-75.0); Hemoglobin 8.7 g/dL (14.0-18.0); Mean Corpuscular HGB CONC 31.8 g/dL (32.0-36.0); Mean Corpuscular Hemoglobin 32.3 pg (27.0-31.0); Mean Platelet Volume 7.5 fL (7.4-10.4); Platelet Count 147 thou/uL (130-400); RBC Distribution Width 15.3 % (11.5-14.5); Red Blood Cell (RBC) Count 2.68 mill/uL (4.70-6.10); White Blood Cell (WBC) Count 3.1 thou/uL (4.8-10.8)
[2020-07-05 06:49] LABS: Anion Gap 10 mmol/L (10-20); BUN (Urea Nitrogen) 67 mg/dL (8.4-25.7); Calc. Creatinine Clearance 19 mL/min (70-130); Calcium 6.8 mg/dL (7.8-10.44); Carbon Dioxide 22 mmol/L (23-31); Chloride 118 mmol/L (98-107); Estimated GFR-MDRD 25; Glucose 120 mg/dL (83-110); Potassium 3.5 mmol/L (3.5-5.1); Sodium 146 mmol/L (136-145)
[2020-07-05] MEDS: Docusate 100 MG CAP PO SCH ×2 (09:50→20:34)
[2020-07-05] MEDS: Cyanocobalamin (Vitamin B-12) 1,000 MCG TAB PO SCH (09:50)
[2020-07-05] MEDS: Sodium Bicarbonate Tab 325 MG TAB PO SCH (09:50)
[2020-07-05] MEDS: Pantoprazole 40 MG VIAL IVP SCH ×2 (09:50→20:43)
[2020-07-05] MEDS: Amlodipine 5 MG TAB PO SCH (09:50)
[2020-07-05] MEDS: Folic Acid 1 MG TAB PO SCH (09:50)
[2020-07-05] MEDS ORDERED: Dextrose 5% in Water 1,000 ML IV SCH (10:15)
--- NOTE | 2020-07-05 12:58 | PRG ---
DATE OF SERVICE: 07/05/2020 SUBJECTIVE: Patient was seen and examined at bedside and overnight events noted. Patient denies any shortness of breath or chest pain or palpitation. No history of nausea or vomiting or diarrhea or fever or chills or cramps. OBJECTIVE: GENERAL: This is a well-built male, in no apparent distress. VITAL SIGNS: Temperature 98.7. Heart rate 84. Respiratory rate 16. Blood pressure 140/86. HEENT: Atraumatic, normocephalic. Oral mucosa is moist. NECK: Supple. CARDIOVASCULAR: S1, S2 heard. Rate and rhythm regular. RESPIRATORY: Chest with crackles present. GASTROINTESTINAL: Abdomen is soft. MUSCULOSKELETAL: No tenderness. No edema. DERMATOLOGIC: No skin rash. NEUROLOGIC: Alert and awake and oriented x3. No focal neurologic deficits. Moving all the extremities. PSYCHIATRIC: Mood and affect normal. LABORATORY DATA: Potassium 3.5, BUN is 67, and creatinine is 2.4. ASSESSMENT AND PLAN: 1. Acute kidney injury on chronic kidney disease, stage 4. Labs are better. 2. Hypernatremia. 3. Multiple myeloma. 4. Anemia. 5. Edema. We will recommend to stop IV fluids for now. The patient might be getting fluid overloaded. Avoid nephrotoxins. Continue on chemotherapy per Primary Team. We will follow renal function. If seems to be stable, we will stop sodium bicarbonate. Job ID: [id number]
[2020-07-05] MEDS: ALPRAZolam 0.25 MG TAB PO PRN ×2 (13:10→20:35)
--- NOTE | 2020-07-05 14:36 | PDOC.MOPN ---
Interval History: anxious today. - Vital Signs Vital Signs: Vital Signs (12 hours) Temp Pulse Resp BP Pulse Ox 07/05/20 13:15 88 20 07/05/20 09:50 84 07/05/20 08:00 98.7 F 84 16 140/86 95 07/05/20 06:50 80 24 H Weight Admit Weight 120 lb 8.96 oz Weight 120 lb 9 oz - Physical Exam General: Alert Lungs: Clear to auscultation, Normal air movement Cardiovascular: Regular rate, Normal S1, Normal S2, No murmurs, Gallops, Rubs Abdomen: Normal bowel sounds, Soft, No tenderness, No hepatospenomegaly, No masses Neurological: Normal speech - Labs Result Diagrams: 07/05/20 06:04 07/05/20 06:04 Lab results: Laboratory Results - last 24 hr 07/05/20 06:04: WBC 3.1 L, RBC 2.68 L, Hgb 8.7 L, Hct 27.2 L, MCV 102.0 H, MCH 32.3 H, MCHC 31.8 L, RDW 15.3 H, Plt Count 147, MPV 7.5, Neutrophils % 87.5 H, Lymphocytes % 7.0 L, Monocytes % 4.7, Eosinophils % 0.2, Basophils % 0.7, Neutrophils # 2.7, Lymphocytes # 0.2 L, Monocytes # 0.1 L, Eosinophils # 0.0, Basophils # 0.0 07/05/20 06:04: Sodium 146 H, Potassium 3.5, Chloride 118 H, Carbon Dioxide 22 L , Anion Gap 10, BUN 67 H, Creatinine 2.49 H, Estimated GFR (MDRD) 25, Glucose 120 H, Calcium 6.8 L, Magnesium 2.0 Status: lab reviewed by me A/P - Problem (1) Hypercalcemia of malignancy Current Visit: No Code(s): E83.52 - HYPERCALCEMIA Status: Acute (2) Right lower lobe pneumonia Current Visit: No Code(s): J18.9 - PNEUMONIA, UNSPECIFIED ORGANISM Status: Acute (3) Multiple myeloma Current Visit: No Code(s): C90.00 - MULTIPLE MYELOMA NOT HAVING ACHIEVED REMISSION Status: Suspected Qualifiers: Multiple myeloma remission status: not in remission Qualified Code(s): C90.00 - Multiple myeloma not having achieved remission - Plan Plan: Tolerating Cytoxan well continue abx for pneumonia home when ok with other MD's Follow-up Dr. Slaughter next week in office, we will call with appt
--- NOTE | 2020-07-05 17:01 | PDOC.HOSPP ---
- Subjective Encounter Date: 07/05/20 Encounter Time: 11:00 Subjective: no overnight events. s/p cyclophosphamide. Breathing and satting well on 2L/RA. has no complaints. Can discharge tomorrow after checking renal function and touching base with nephrology. Medications sent to [facility]. Oncology arranged outpatient meds/appointment - Objective Vital Signs & Weight: Vital Signs (12 hours) Temp Pulse Resp BP Pulse Ox 07/05/20 16:00 98.8 F 82 20 143/68 H 93 L 07/05/20 13:15 88 20 07/05/20 09:50 84 07/05/20 08:00 98.7 F 84 16 140/86 95 07/05/20 06:50 80 24 H Weight Admit Weight 120 lb 8.96 oz Weight 120 lb 9 oz I&O: 07/04/20 07/05/20 07/06/20 06:59 06:59 06:59 Intake Total 3220 542 Output Total 863 192 9396 Balance 6929 -099 -860 Result Diagrams: 07/05/20 06:04 07/05/20 06:04 Hospitalist ROS - Review of Systems Constitutional: denies: chills, sweats Respiratory: reports: cough, dry. denies: shortness of breath Cardiovascular: denies: chest pain, palpitations, edema Gastrointestinal: denies: nausea, vomiting, abdominal pain Genitourinary: denies: hematuria - Medication Medications: Active Medications Generic Name Dose Route Start Last Admin Trade Name Freq PRN Reason Stop Dose Admin Albuterol/Ipratropium 3 ml 07/01/20 19:00 07/05/20 13:15 Duoneb NEB 3 ml [id number] TESSA Administration Alprazolam 0.25 mg 07/04/20 03:45 07/05/20 13:10 Xanax PO 0.25 mg TIDPRN PRN Administration Anxiety Amlodipine Besylate 5 mg 07/02/20 09:00 07/05/20 09:50 Norvasc PO 5 mg DAILY TESSA Administration Bisacodyl 10 mg 07/03/20 13:00 07/05/20 12:20 Dulcolax [place] Not Given Q8H TESSA Cyanocobalamin 1,000 mcg 07/02/20 09:00 07/05/20 09:50 Vitamin B-12 PO 1,000 mcg DAILY TESSA Administration Docusate Sodium 100 mg 07/03/20 21:00 07/05/20 09:50 Colace PO 100 mg BID TESSA Administration Folic Acid 1 mg 07/02/20 09:00 07/05/20 09:50 Folvite PO 1 mg DAILY TESSA Administration Piperacillin Sod/Tazobactam 100 mls @ 200 mls/hr 07/01/20 22:00 07/05/20 14: 27 Sod 2.25 gm/ Sodium Chloride IVPB 100 mls Q8HR TESSA Administration Ondansetron HCl 8 mg/ Sodium 54 mls @ 200 mls/hr 07/04/20 11:15 07/04/20 13: 18 Chloride IVPB 54 mls WILLCALL TESSA Administration Sodium Chloride 500 mls @ 0 mls/hr 07/04/20 12:45 07/04/20 13:18 Normal Saline 0.9% IVPB 500 mls INF TESSA Administration KVO Mirtazapine 15 mg 07/01/20 21:00 07/04/20 20:17 Remeron PO 15 mg HS TESSA Administration Pantoprazole Sodium 40 mg 07/01/20 21:00 07/05/20 09:50 Protonix IVP 40 mg Q12HR TESSA Administration Tramadol HCl 50 mg 07/01/20 21:55 07/04/20 20:16 Ultram PO 50 mg Q6H PRN Administration Severe Pain (7-10) - Exam General Appearance: ill appearing General - other findings: chronically. drowsier than yesterday Eye: PERRL Neck: no JVD Heart: RRR, no murmur, no gallops, no rubs Respiratory: CTAB, no wheezes, no ronchi, rales (reduced right lower field sounds, inspiratory rales (unchanged)) Gastrointestinal: non-tender, normal bowel sounds, distended (unchanged; check residuals to ensure felton not occluded; 20cc residual) Extremities: no edema Hosp A/P - Plan #CAP/Aspiration pneumonia clinically improving Resp culture - normal respiratory ryan and yeast procalcitonin remains elevated but may be related to malignancy - continue zosyn ; prescribed outpatient augmentin #constipation (resolved) no BM in 5 days; patient hasnt been receiving bisacodyl [place] -continue docusate, bisacodyl PRN #TAM (stable) -improving -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
[2020-07-05] MEDS: Mirtazapine 15 MG TAB PO SCH (20:35)
[2020-07-06] MEDS ORDERED: Furosemide 40 MG/4 ML VIAL SLOW IVP SCH (04:00)
[2020-07-06] MEDS: Bisacodyl 10 MG SUPP PR SCH ×3 (04:15→21:45)
[2020-07-06 04:46] LABS: #Lymphocytes 0.3 thou/uL (1.20-3.40); #Monocytes 0.1 thou/uL (0.11-0.59); #Neutrophils 2.3 thou/uL (1.40-6.50); %Basophils 0.2 % (0.0-1.0); %Eosinophils 0.7 % (0.0-10.0); %Lymphocytes 11.6 % (21.0-51.0); %Monocytes 3.5 % (0.0-10.0); %Neutrophils 83.9 % (42.0-75.0); Hemoglobin 8.4 g/dL (14.0-18.0); Mean Corpuscular Hemoglobin 31.5 pg (27.0-31.0); Mean Platelet Volume 7.4 fL (7.4-10.4); Platelet Count 174 thou/uL (130-400); RBC Distribution Width 15.4 % (11.5-14.5); Red Blood Cell (RBC) Count 2.67 mill/uL (4.70-6.10); White Blood Cell (WBC) Count 2.7 thou/uL (4.8-10.8)
[2020-07-06 04:56] LABS: Anion Gap 11 mmol/L (10-20); BUN (Urea Nitrogen) 49 mg/dL (8.4-25.7); Calc. Creatinine Clearance 22 mL/min (70-130); Calcium 6.5 mg/dL (7.8-10.44); Carbon Dioxide 21 mmol/L (23-31); Chloride 117 mmol/L (98-107); Estimated GFR-MDRD 29; Glucose 87 mg/dL (83-110); Magnesium 1.9 mg/dL (1.6-2.6); Potassium 3.2 mmol/L (3.5-5.1); Sodium 146 mmol/L (136-145)
[2020-07-06] MEDS: ALPRAZolam 0.25 MG TAB PO PRN ×2 (04:58→21:49)
[2020-07-06] MEDS: Piperacillin/Tazobactam 2.25 GM in Sodium Chloride 0.9% 100 ML IVPB SCH ×3 (05:05→21:48)
[2020-07-06] MEDS: Folic Acid 1 MG TAB PO SCH ×2 (08:35→09:00)
[2020-07-06] MEDS: Cyanocobalamin (Vitamin B-12) 1,000 MCG TAB PO SCH (08:35)
[2020-07-06] MEDS: Docusate 100 MG CAP PO SCH ×2 (08:35→21:48)
[2020-07-06] MEDS: Amlodipine 5 MG TAB PO SCH (08:35)
[2020-07-06] MEDS: Pantoprazole 40 MG VIAL IVP SCH ×2 (08:37→21:48)
--- NOTE | 2020-07-06 08:42 | RAD ---
PORTABLE CHEST 1 VIEW: DATE: 07/06/2020. TIME: 3:26 AM. HISTORY: Worsening shortness of breath. COMPARISON: 06/29/2020. FINDINGS/IMPRESSION: Bilateral pleural parenchymal changes are again seen, right worse than left. There has been interval worsening of the findings in the left lower hemithorax compared to the previous study of 06/29/2020. No pneumothoraces are seen. The heart size is stable. POS: OFF
[2020-07-06] MEDS ORDERED: Albuterol Sulfate 1.25 MG/3 ML NEB NEB PRN (09:12)
[2020-07-06] MEDS ORDERED: Potassium Chloride 20 MEQ TAB PO SCH (11:30)
--- NOTE | 2020-07-06 14:20 | PRG ---
DATE OF SERVICE: 07/06/2020 SUBJECTIVE: Patient was seen and examined at bedside and overnight events noted. Patient denies any shortness of breath or chest pain or palpitation. No history of nausea or vomiting or diarrhea or fever or chills or cramps. OBJECTIVE: GENERAL: This is well-built male, in no apparent distress. VITAL SIGNS: Temperature 97.9. Heart Rate 76. Respiratory rate 18. Blood pressure 143/68. HEENT: Atraumatic, normocephalic. Oral mucosa is moist. NECK: Supple. CARDIOVASCULAR: S1, S2 heard. Rate and rhythm regular. RESPIRATORY: Clear to auscultation. GASTROINTESTINAL: Abdomen is soft. MUSCULOSKELETAL: No tenderness. No edema. DERMATOLOGIC: No skin rash. NEUROLOGIC: Alert and awake and oriented x3. No focal neurologic deficits. Moving all the extremities. PSYCHIATRIC: Mood and affect normal. LABORATORY DATA: Potassium 3.2, BUN is 49, creatinine is 2.1 from 2.4 yesterday. ASSESSMENT AND PLAN: 1. Acute kidney injury on chronic kidney disease approaching stage 3 now. 2. Hyponatremia. 3. Hypokalemia. 4. Acidosis. 5. Edema. 6. Hypertension. 7. Multiple myeloma. Continue to follow with Oncology if he goes home and needs Nephrology followup also. Avoid nephrotoxins. Follow with Oncology and Nephrology as outpatient. Job ID: [id number]
--- NOTE | 2020-07-06 15:13 | DIS ---
DATE OF ADMISSION: 07/01/2020 DATE OF DISCHARGE: 07/06/2020 PRIMARY CARE PROVIDER: Unknown. DISCHARGE DIAGNOSES: 1. Community-acquired pneumonia. 2. Aspiration pneumonia. 3. Acute kidney injury. 4. Immunoglobulin G, multiple myeloma. 5. Pathologic left humeral fracture. CONDITION OF PATIENT ON THE DAY OF DISCHARGE: Stable. I assessed Mr. Bee on the day of discharge. He denies any chest pain or shortness of breath. Vital signs are stable. S1 and S2 are heard, regular. Lungs are clear to auscultation bilaterally. HOSPITAL COURSE: Mr. Bee is a pleasant 75-year-old gentleman, who was admitted to [facility] on July 01, 2020 as a transfer from [facility]. He had hypercalcemia, anemia, and renal failure at the time of admission. He also had left humeral fracture in the past. He was seen by Oncology and Orthopedic Surgery Services as well as by Nephrology Service. He was started on cyclophosphamide. He improved clinically. He was also treated for pneumonia with antibiotics. He is being discharged home in a stable condition. DISCHARGE DESTINATION: Home. ACTIVITY: As tolerated. DIET: Heart healthy. FOLLOWUP: Post-acute care followup: With primary care provider in 3 days and with Oncology as outpatient. OTHER: Total amount of time spent coordinating this discharge: 33 minutes. Job ID: [id number]
--- NOTE | 2020-07-06 15:57 | PDOC.HOSPP ---
- Subjective Encounter Date: 07/06/20 Encounter Time: 15:55 Subjective: Pt seen for followup re: dehydration. Not eating much. - Objective Vital Signs & Weight: Vital Signs (12 hours) Temp Pulse Resp BP Pulse Ox 07/06/20 14:44 76 20 07/06/20 08:35 76 07/06/20 08:00 96 07/06/20 07:50 97.9 F 76 18 143/68 H 96 07/06/20 04:00 97 Weight Admit Weight 120 lb 8.96 oz Weight 120 lb 9 oz I&O: 07/05/20 07/06/20 07/07/20 06:59 06:59 06:59 Intake Total 1142 Output Total 387 6854 3210 Balance -971 -0049 -4701 Result Diagrams: 07/06/20 03:57 07/06/20 03:57 Additional Labs: labs and MARs reviewed by id Hospitalist ROS - Review of Systems Constitutional: reports: weakness Cardiovascular: denies: chest pain, palpitations, orthopnea, paroxysmal noc. dyspnea, edema, light headedness Gastrointestinal: denies: nausea, vomiting, abdominal pain, diarrhea, constipation, melena, hematochezia - Medication Medications: Active Medications Generic Name Dose Route Start Last Admin Trade Name Freq PRN Reason Stop Dose Admin Albuterol/Ipratropium 3 ml 07/01/20 19:00 07/06/20 14:44 Duoneb NEB 3 ml [id number] TESSA Administration Alprazolam 0.25 mg 07/04/20 03:45 07/06/20 04:58 Xanax PO 0.25 mg TIDPRN PRN Administration Anxiety Amlodipine Besylate 5 mg 07/02/20 09:00 07/06/20 08:35 Norvasc PO 5 mg DAILY TESSA Administration Bisacodyl 10 mg 07/03/20 13:00 07/06/20 13:[address] Not Given Q8H TESSA Cyanocobalamin 1,000 mcg 07/02/20 09:00 07/06/20 08:35 Vitamin B-12 PO 1,000 mcg DAILY TESSA Administration Docusate Sodium 100 mg 07/03/20 21:00 07/06/20 08:35 Colace PO 100 mg BID TESSA Administration Folic Acid 1 mg 07/02/20 09:00 07/06/20 09:00 Folvite PO Not Given DAILY TESSA Piperacillin Sod/Tazobactam 100 mls @ 200 mls/hr 07/01/20 22:00 07/06/20 13: 39 Sod 2.25 gm/ Sodium Chloride IVPB 100 mls Q8HR TESSA Administration Ondansetron HCl 8 mg/ Sodium 54 mls @ 200 mls/hr 07/04/20 11:15 07/04/20 13: 18 Chloride IVPB 54 mls WILLCALL TESSA Administration Mirtazapine 15 mg 07/01/20 21:00 07/05/20 20:35 Remeron PO 15 mg HS TESSA Administration Pantoprazole Sodium 40 mg 07/01/20 21:00 07/06/20 08:37 Protonix IVP 40 mg Q12HR TESSA Administration Potassium Chloride 40 meq 07/06/20 11:45 07/06/20 12:45 Klor-Con PO 07/06/20 16:00 40 meq NOW TESSA Administration Tramadol HCl 50 mg 07/01/20 21:55 07/04/20 20:16 Ultram PO 50 mg Q6H PRN Administration Severe Pain (7-10) - Exam General Appearance: awake alert Eye: anicteric sclera ENT: moist mucosa, dry oral mucosa Neck: supple, symmetric Heart: RRR Respiratory: CTAB Gastrointestinal: soft, non-tender Extremities: no cyanosis Skin: normal turgor Neurological: cranial nerve grossly intact Psychiatric: normal affect, normal behavior Hosp A/P - Plan #Dehydration start IV fluids #CAP/Aspiration pneumonia Pt is on Zosyn #TAM (stable) -resolved -500cc D5w for hypernatremia; stopped iVF per nephrology -strict I/O #IgG multiple myeloma -s/p cytoxan #pathologic L humerus fracture -sling ordered
[2020-07-06] MEDS: Sodium Chloride 0.9% 1,000 ML IV SCH (16:46)
[2020-07-06 20:30] VITALS: TEMP 98.5
[2020-07-06] MEDS: Mirtazapine 15 MG TAB PO SCH (21:48)
[2020-07-06] MEDS: traMADol HCl 50 MG TAB PO PRN (21:50)
[2020-07-07] MEDS: Bisacodyl 10 MG SUPP PR SCH (04:50)
[2020-07-07] MEDS: Sodium Chloride 0.9% 1,000 ML IV SCH (05:06)
[2020-07-07] MEDS: Piperacillin/Tazobactam 2.25 GM in Sodium Chloride 0.9% 100 ML IVPB SCH (05:06)
[2020-07-07 05:40] LABS: #Eosinphils 0.1 thou/uL (0.0-0.7); #Lymphocytes 0.2 thou/uL (1.20-3.40); #Monocytes 0.1 thou/uL (0.11-0.59); #Neutrophils 4.5 thou/uL (1.40-6.50); %Basophils 0.2 % (0.0-1.0); %Eosinophils 1.2 % (0.0-10.0); %Lymphocytes 4.5 % (21.0-51.0); %Monocytes 2.2 % (0.0-10.0); %Neutrophils 91.9 % (42.0-75.0); Hemoglobin 9.8 g/dL (14.0-18.0); Mean Corpuscular HGB CONC 32.5 g/dL (32.0-36.0); Mean Corpuscular Hemoglobin 32.7 pg (27.0-31.0); Mean Platelet Volume 7.3 fL (7.4-10.4); Platelet Count 178 thou/uL (130-400); RBC Distribution Width 15.1 % (11.5-14.5); White Blood Cell (WBC) Count 4.9 thou/uL (4.8-10.8)
[2020-07-07 05:58] LABS: Anion Gap 12 mmol/L (10-20); BUN (Urea Nitrogen) 34 mg/dL (8.4-25.7); Calc. Creatinine Clearance 25 mL/min (70-130); Carbon Dioxide 22 mmol/L (23-31); Chloride 111 mmol/L (98-107); Estimated GFR-MDRD 34; Glucose 74 mg/dL (83-110); Potassium 3.1 mmol/L (3.5-5.1); Sodium 142 mmol/L (136-145)
[2020-07-07] MEDS ORDERED: Potassium Chloride 20 MEQ TAB PO SCH (07:15)
[2020-07-07] MEDS ORDERED: Megestrol Acetate 40 MG TAB PO SCH (09:00)
[2020-07-07 09:34] VITALS: BP 170/81
[2020-07-07] MEDS: Pantoprazole 40 MG VIAL IVP SCH ×2 (09:54→10:24)
[2020-07-07] MEDS: Docusate 100 MG CAP PO SCH (09:59)
[2020-07-07] MEDS: Folic Acid 1 MG TAB PO SCH (09:59)
[2020-07-07] MEDS: Amlodipine 5 MG TAB PO SCH (10:00)
[2020-07-07] MEDS: Cyanocobalamin (Vitamin B-12) 1,000 MCG TAB PO SCH (10:02)
--- NOTE | 2020-07-08 04:17 | DIS ---
DATE OF ADMISSION: 07/01/2020 DATE OF DISCHARGE: 07/07/2020 PRIMARY CARE PROVIDER: Unknown. DISCHARGE DIAGNOSES: 1. Community-acquired pneumonia. 2. Aspiration pneumonia. 3. Acute kidney injury. 4. Immunoglobulin G multiple myeloma. 5. Pathologic left humeral fracture. 6. Dehydration. 7. Hypocalcemia. Please note that I dictated a different discharge summary on July 06, 2020. Patient was not discharged that day because he was dehydrated. He improved with intravenous fluids. CONDITION OF PATIENT ON THE DAY OF DISCHARGE: Stable. I assessed Mr. Bee on the day of discharge. He denies any chest pain or shortness of breath. Vital signs are stable. S1 and S2 are heard, regular. Lungs are clear to auscultation bilaterally. DISCHARGE MEDICATIONS: 1. Xanax 0.25 mg 3 times a day as needed. 2. Amlodipine 5 mg daily. 3. Augmentin 875/125 mg 2 times a day, 10 more doses. 4. Calcium carbonate 500 mg 2 times a day, 10 doses. 5. 6. Vitamin B12 is 1000 mcg daily. 7. Colace 100 mg 2 times a day. 8. Folic acid 1 mg daily. 9. Megace 40 mg 2 times a day. HOSPITAL COURSE: As dictated in my discharge summary dated July 06, 2020. Patient was not discharged that day because he was dehydrated. He improved with intravenous fluids. He has been started on Megace for appetite stimulation. On the day of discharge, sodium 142; potassium 3.1, which is being replaced; creatinine 1.92; calcium level corrected for albumin was 7.2. DISCHARGE DESTINATION: Home. DIET: Heart-healthy and renal. ACTIVITY: As tolerated. FOLLOWUP: Post acute care followup: With a primary care provider in 3 days and with Oncology Service as outpatient. They will contact him with an appointment. TIME SPENT: Total amount of time spent coordinating this discharge: Twenty-five minutes. Job ID: [id number]
== END 2020-07-07 12:20 | disposition home or self-care (01) | DRG 840 ==
LOC: ONC 10:41
PROVIDERS: ADMIT Internal Medicine; ATTEND Internal Medicine
DX: C90.00 Multiple myeloma not having achieved remission (principal); I21.A1 Myocardial infarction type 2; J69.0 Pneumonitis due to inhalation of food and vomit; N17.9 Acute kidney failure, unspecified; R64 Cachexia; Z68.1 Body mass index [BMI] 19.9 or less, adult; N18.4 Chronic kidney disease, stage 4 (severe); E87.2 Acidosis; E87.0 Hyperosmolality and hypernatremia; F32.9 Major depressive disorder, single episode, unspecified; D53.9 Nutritional anemia, unspecified; M84.522D Pathological fracture in neoplastic disease, left humerus, subsequent encounter for fracture with routine healing; I12.9 Hypertensive chronic kidney disease with stage 1 through stage 4 chronic kidney disease, or unspecified chronic kidney disease; E83.52 Hypercalcemia; D63.0 Anemia in neoplastic disease; F41.9 Anxiety disorder, unspecified; K59.00 Constipation, unspecified; E87.6 Hypokalemia; E86.0 Dehydration
CPT/HCPCS: 36415; 71045; 80048; 80202; 82040; 82553; 83615; 83735; 83880; 84100; 84145; 84484; 84550; 85025; 87070; 87205; 94640; C9113; J1100; J1940; J1956; J2405; J2543; J3370; J3475; J3480; J3490; J7030; J7050; J7620; J9070; S0179